=== PATIENT | male | born 1955 | race Caucasian/White ===

== ENCOUNTER → 2019-08-18 | Outpatient (CLI) | payer OTHER ==
--- NOTE | 2019-08-18 13:54 | RAD ---
PROCEDURE: FOOT LEFT 3V STUDY DATE: 08/18/2019 CLINICAL INDICATION / HISTORY: Left foot pain. Plantar ulcer of the first metatarsal. TECHNIQUE: AP, lateral and oblique views of the left foot. COMPARISON: None FINDINGS: Mild hallux valgus deformity of the great toe. No fracture or dislocation is identified. Vascular calcifications are present. The bone density is normal. The joint space widths are maintained, and there are no erosions to suggest an inflammatory arthropathy. No soft tissue abnormality is otherwise seen. IMPRESSION: No acute osseous abnormality. In particular, no evidence of osteomyelitis. Electronically signed by: Kim Cruz MD (08/18/2019 1:51 PM) [facility]
== END | disposition home or self-care (01) ==
LOC: DXRAD 11:53
PROVIDERS: ATTEND Podiatrist Foot & Ankle Surgery
DX: L97.529 Non-pressure chronic ulcer of other part of left foot with unspecified severity (principal); M20.12 Hallux valgus (acquired), left foot
CPT/HCPCS: 73630

== ENCOUNTER 2019-12-10 21:10 | Emergency (ER) | payer OTHER ==
[~2019-12-10] VITALS: Ht 172.7 cm; Wt 81.8 kg
[2019-12-10] MEDS ORDERED: BACITRACIN ZINC TOPICAL OINT PACKET. TP ONE (22:00)
[2019-12-10] MEDS ORDERED: DIPH,PERTUSS(ACELL),TET VAC/PF 0.5 ML SYRINGE. VAX IM ONE (22:00)
[2019-12-10] MEDS ORDERED: ACETAMINOPHEN 500 MG TABLET PO ONE (22:00)
[2019-12-10] MEDS ORDERED: LIDOCAINE 2%/EPI 1:100,000 20 ML VIAL. IJ ONE (22:00)
--- NOTE | 2019-12-10 22:02 | PHYS DOC ---
Past History Past Medical History: Diabetes, Hypertension, Other Past Medical History Hearing loss Past Surgical History: Appendectomy Alcohol Use: Heavy General Adult EDM: Chief Complaint: HEAD INJURY/TRAUMA HPI: HPI: "..I was playing pickle ball...I have been drinking a little.. but I stepped backwards..and hit my head...I guess kevin busted it open or I got a laceration back there.....there was a retired Vet. there..and he said I should get it checked .. and maybe some sutures.." Patient is a 64 year old retired [employer] [place] male who presents with above hx and complaints of head contusion with laceration 6 cm, surrounding abrasion / hematoma 12 x12 cm. Patient denies any specific loss of consciousness but states he was stunned. Patient denies any neck pain but localizes pain to the area of laceration and abrasion. Patient denies any use of anticoagulants. Patient states his tetanus is up-to-date. Patient denies any other injury currently. Patient denies any specific ill contacts. Patient denies any travel outside the [place] area. Patient states he is normally healthy. Review of Systems: Review of Systems: Constitutional: Denies fever or chills Eyes: Denies change in visual acuity HENT: Denies nasal congestion or sore throat Respiratory: Denies cough or shortness of breath Cardiovascular: Denies chest pain or edema GI: Denies abdominal pain, nausea, vomiting, bloody stools or diarrhea : Denies dysuria Musculoskeletal: Denies back pain or joint pain Integument: Denies rash Neurologic: Denies headache, focal weakness or sensory changes Endocrine: Denies polyuria or polydipsia Lymphatic: Denies swollen glands Psychiatric: Denies depression or anxiety Heart Score: Risk Factors: Risk Factors: DM, Current or recent (<one month) smoker, HTN, HLP, family history of CAD, obesity. Risk Scores: Score 0 - 3: 2.5% MACE over next 6 weeks - Discharge Home Score 4 - 6: 20.3% MACE over next 6 weeks - Admit for Clinical Observation Score 7 - 10: 72.7% MACE over next 6 weeks - Early Invasive Strategies Family History: Family History: Noncontributory to presentation Current Medications: Current Meds: See nursing for home meds Allergies: Allergies: Allergies Coded Allergies Type Severity Reaction Last Updated Verified No Known Drug Allergies 12/10/19 No Physical Exam: PE: Constitutional: Well developed, well nourished, moderate acute distress, non- toxic appearance. [] HENT: Normocephalic, laceration, abrasion and hematoma posterior scalp, bilateral external ears normal, oropharynx moist, no oral exudates, nose normal. [] Eyes: PERRLA, EOMI, conjunctiva normal, no discharge. [] Neck: Normal range of motion, no tenderness, supple, no stridor. [] Cardiovascular:Heart rate regular rhythm, no murmur [] Lungs & Thorax: Bilateral breath sounds equal apex on auscultation [] Abdomen: Bowel sounds normal, soft, no tenderness, no masses, no pulsatile masses. [] Skin: Warm, dry, no erythema, no rash. [] Back: No tenderness, no CVA tenderness. [] Extremities: No tenderness, no cyanosis, no clubbing, ROM intact, no edema. [] Neurologic: Alert and oriented X 3, normal motor function, normal sensory function, no focal deficits noted. Patient amatory without problems on discharge. DTRs +2 patellar and brachial. No drift. 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 Right-hand dominant. Psychologic: Affect normal, judgement normal, mood normal. [] Current Patient Data: Vital Signs: Vital Signs Date Time Temp Pulse Resp B/P (MAP) Pulse Ox O2 Delivery O2 Flow Rate FiO2 12/10/19 21:23 97.7 76 18 154/85 (108) 98 Room Air EKG: EKG: [] Radiology/Procedures: Radiology/Procedures: [][address] [address] IMAGING REPORT Signed PATIENT: BERONICA MAYO ACCOUNT: [id number] : 1955 LOCATION: ER AGE: 64 SEX: M EXAM STATUS: PRE ER ORD. PHYSICIAN: SHERRILL DOLAN MD REASON: FALL, HIT BACK OF HEAD ON GROUND.LACERATION PROCEDURE: CT HEAD AND CERVICAL SPINE WO CT HEAD AND CERVICAL SPINE WO Date: 12/10/2019 9:55 PM Clinical Indication: Reason: FALL, HIT BACK OF HEAD ON GROUND.LACERATION / Spl. Instructions: / History: Comparison: None. Technique: 5 mm axial tomographic images were obtained of the head without contrast. These were viewed on brain and bone windows. CT imaging of the cervical spine was performed without contrast. Coronal and sagittal reformatted images were performed. One or more of the following dose reduction techniques were utilized: Automated exposure control (AEC), Adjustment of mA and/or kV according to patient size, Use of iterative reconstruction technique such as ASiR, CT scan done according to ALARA and image gently/image wisely HEAD FINDINGS: The brain parenchyma is normal in attenuation. No intra- or extra-axial mass or fluid collection. No acute hemorrhage. The ventricles are normal in size, shape, and morphology. The ramírez-white matter junction is normal. The basilar cisterns are patent. The visualized paranasal sinuses are normal. The visualized portions of the orbits and globes are normal. The mastoid air cells are clear. No aggressive osseous lesion or fracture. Posterior scalp swelling. CERVICAL SPINE FINDINGS: The cervical spine is normally aligned. No acute fracture. No aggressive lytic or blastic osseous lesion. Elongation of the styloid processes/ossification of the stylohyoid ligaments. Mild multilevel degenerative disc height loss. No high-grade spinal canal stenosis or neural foraminal narrowing. The thyroid gland is normal. No cervical lymphadenopathy. The visualized aerodigestive tract is unremarkable. The visualized lung apices are clear. IMPRESSION: 1. No acute intracranial process. Posterior scalp swelling. 2. No acute osseous abnormality of the cervical spine. Electronically signed by: Ale Arizmendi MD (12/10/2019 10:22 PM) [id number] DICTATED AND SIGNED BY: ALE ARIZMENDI MD DATE: 12/10/192221 CC: CAROLYNN HARDEN; SHERRILL DOLAN MD ~ Course & Med Decision Making: Course & Med Decision Making Pertinent Labs and Imaging studies reviewed. (See chart for details) Procedure note-laceration cleaned with surgical soap and water. Injected edge of laceration with lidocaine 2% with epinephrine. Scrubbed laceration with 4x4's. I irrigated laceration with normal saline under pressure. Close laceration was 6x 4-0 Vircyl . Bactracin applied. Pt.to keep laceration clean and dry. Pt. to get no direct bath or shower water to site. Monitor for infection. Avoid further alcohol use tonight. May take Tylenol for pain. Sutures will dissolve. Head injury precautions. Patient return if any concerns. Impression: 1. Contusion 2. Concussion 3. Laceration 6 cm 4. Abrasion / Hematoma 12 x12 cm [] Jeremiah Disclaimer: Jeremiah Disclaimer: This electronic medical record was generated, in whole or in part, using a voice recognition dictation system. Departure Departure: Disposition: 01 HOME/RESIDENCE PRIOR TO ADM Condition: STABLE Referrals: CAROLYNN HARDEN (PCP) Jeremiah Disclaimer This chart was dictated in whole or in part using Voice Recognition software in a busy, high-work load, and often noisy Emergency Department environment. It may contain unintended and wholly unrecognized errors or omissions. SHERRILL DOLAN MD December 10, 2019 22:02
--- NOTE | 2019-12-10 22:25 | RAD ---
CT HEAD AND CERVICAL SPINE WO Date: 12/10/2019 9:55 PM Clinical Indication: Reason: FALL, HIT BACK OF HEAD ON GROUND.LACERATION / Spl. Instructions: / History: Comparison: None. Technique: 5 mm axial tomographic images were obtained of the head without contrast. These were viewed on brain and bone windows. CT imaging of the cervical spine was performed without contrast. Coronal and sagittal reformatted images were performed. One or more of the following dose reduction techniques were utilized: Automated exposure control (AEC), Adjustment of mA and/or kV according to patient size, Use of iterative reconstruction technique such as ASiR, CT scan done according to ALARA and image gently/image wisely HEAD FINDINGS: The brain parenchyma is normal in attenuation. No intra- or extra-axial mass or fluid collection. No acute hemorrhage. The ventricles are normal in size, shape, and morphology. The ramírez-white matter junction is normal. The basilar cisterns are patent. The visualized paranasal sinuses are normal. The visualized portions of the orbits and globes are normal. The mastoid air cells are clear. No aggressive osseous lesion or fracture. Posterior scalp swelling. CERVICAL SPINE FINDINGS: The cervical spine is normally aligned. No acute fracture. No aggressive lytic or blastic osseous lesion. Elongation of the styloid processes/ossification of the stylohyoid ligaments. Mild multilevel degenerative disc height loss. No high-grade spinal canal stenosis or neural foraminal narrowing. The thyroid gland is normal. No cervical lymphadenopathy. The visualized aerodigestive tract is unremarkable. The visualized lung apices are clear. IMPRESSION: 1. No acute intracranial process. Posterior scalp swelling. 2. No acute osseous abnormality of the cervical spine. Electronically signed by: Wan Arizmendi MD (12/10/2019 10:22 PM) [id number]
[2019-12-10 22:40] VITALS: BP 131/75
== END 2019-12-10 22:45 | disposition home or self-care (01) ==
LOC: ER 21:10
DX: S06.0X0A Concussion without loss of consciousness, initial encounter (principal); S01.01XA Laceration without foreign body of scalp, initial encounter; E11.9 Type 2 diabetes mellitus without complications; I10 Essential (primary) hypertension; F10.20 Alcohol dependence, uncomplicated; Y90.9 Presence of alcohol in blood, level not specified; W22.8XXA Striking against or struck by other objects, initial encounter; Y93.89 Activity, other specified; Y92.89 Other specified places as the place of occurrence of the external cause; Y99.8 Other external cause status
CPT/HCPCS: 12002; 70450; 72125; 99285-25

== ENCOUNTER 2021-02-13 10:11 | Emergency (ER) | payer OTHER ==
[~2021-02-13] VITALS: Ht 172.7 cm; Wt 76.3 kg
[2021-02-13] MEDS ORDERED: HYDROcodone/APAP 7.5/325MG 1 TAB TABLET PO ONE (10:30)
--- NOTE | 2021-02-13 10:44 | PHYS DOC ---
Past History Past Medical History: Diabetes, Hypertension, Other Past Surgical History: Appendectomy Alcohol Use: Heavy General Adult EDM: Chief Complaint: HYPERTENSION HPI: HPI: Patient is a 65-year-old male sent in from [place] for hypertension. Patient was going to get refills on his medications and his slight blood pressure was in the 180s. Patient states he takes 3 medications for his blood pressure as well as Metformin. Patient has an extensive log of his blood pressures and blood sugars. Patient states there were several times he stopped taking his blood pressure medications. No other complaints. Patient states he has no headaches, vision changes, chest pain, shortness of breath. Review of Systems: Review of Systems: All other systems within normal limits except for as noted in the HPI Current Medications: Current Meds: Current Medications Medications (Trade) Dose Ordered Sig/Killian Start Time Stop Time Status Last Admin Dose Admin Acetaminophen/ Hydrocodone Bitart (Lortab 7.5/325) 1 tab 1X ONCE 02/13/21 10:30 02/13/21 10:27 DC Allergies: Allergies: Allergies Coded Allergies Type Severity Reaction Last Updated Verified No Known Drug Allergies 12/10/19 No Physical Exam: PE: Constitutional: Well developed, well nourished, no acute distress, non-toxic appearance. [] HENT: Normocephalic, atraumatic, bilateral external ears normal, nose normal. [] Eyes: PERRLA, conjunctiva normal, no discharge. [] Neck: No rigidity, supple, no stridor. [] Cardiovascular: Regular rate and rhythm, brisk cap refill [] Lungs & Thorax: Non labored symmetric respirations, no tachypnea or respiratory distress [] Abdomen: Soft, nondistended. Skin: Warm, dry, no erythema, no rash. [] Back: Unremarkable Extremities: No deformities, range of motion grossly intact, no lower extremity edema [] Neurologic: Alert and oriented X 3, no focal deficits noted. [] Psychologic: Affect normal, judgement normal, mood normal. [] EKG: EKG: [] Radiology/Procedures: Radiology/Procedures: [] Heart Score: C/O Chest Pain: No Risk Factors: Risk Factors: DM, Current or recent (<one month) smoker, HTN, HLP, family history of CAD, obesity. Risk Scores: Score 0 - 3: 2.5% MACE over next 6 weeks - Discharge Home Score 4 - 6: 20.3% MACE over next 6 weeks - Admit for Clinical Observation Score 7 - 10: 72.7% MACE over next 6 weeks - Early Invasive Strategies Course & Med Decision Making: Course & Med Decision Making Pertinent Labs and Imaging studies reviewed. (See chart for details) [] Dragon Disclaimer: Dragon Disclaimer: This electronic medical record was generated, in whole or in part, using a voice recognition dictation system. Departure Departure: Impression: Primary Impression: Asymptomatic hypertension Disposition: HOME / SELF CARE / HOMELESS Condition: STABLE Referrals: CAROLYNN HARDEN (PCP) Patient Instructions: Hypertension BRITTANY ORTIZ MD Feb 13, 2021 10:44
[2021-02-13 10:58] VITALS: BP 133/64
== END 2021-02-13 11:02 | disposition home or self-care (01) ==
LOC: ER 10:11
DX: I10 Essential (primary) hypertension (principal); E11.9 Type 2 diabetes mellitus without complications; F10.20 Alcohol dependence, uncomplicated; Z90.89 Acquired absence of other organs; Y90.9 Presence of alcohol in blood, level not specified
CPT/HCPCS: 99281